=== PATIENT | female | born 1980 | race Two or more races ===

== ENCOUNTER 2024-03-08 06:00 | Inpatient (IN) | payer OTHER ==
[~2024-03-08] VITALS: Ht 157.5 cm; Wt 77.1 kg
[~2024-03-08 06:00] MED LIST: B COMPLEX1 EAC1; FOLIC ACID0.8 M1; LABETALOL 11 MG/1 ML; MAXFE CAPLET1 EAC1; OSTERA TABLET1 EACH; TIROSINT50 MCG
[2024-03-08] MEDS ORDERED: BUPIVACAINE HCL/MPF 0.5% 30ML VIAL ONE (07:36)
[2024-03-08] MEDS ORDERED: EPINEPHRINE HCL/PF 1 MG/ML AMPUL ONE (07:36)
[2024-03-08] MEDS ORDERED: CEFAZOLIN SODIUM 1,000 MG VIAL ONE (07:37)
[2024-03-08] MEDS ORDERED: LIDOCAINE HCL 1% 20ML VIAL IJ ONE ×2 (07:37→11:00)
[2024-03-08] MEDS ORDERED: POVIDONE-IODINE 118 ML BOTT TOP ONE (08:53)
[2024-03-08] MEDS ORDERED: BUPIVACAINE HCL 30 ML VIAL IJ ONE (11:00)
[2024-03-08] MEDS ORDERED: EPINEPHRINE HCL/PF 1 MG/ML AMPUL IJ ONE (11:00)
[2024-03-08] MEDS ORDERED: CEFAZOLIN SODIUM 1,000 MG VIAL IV ONE (11:00)
[2024-03-08] MEDS ORDERED: ENOXAPARIN SODIUM 40 MG/0.4 ML SYRINGE SUBCUTANEO ONE (12:30)
[2024-03-08] MEDS ORDERED: SUGAMMADEX SODIUM 200 MG/2 ML VIAL IV ONE (16:34)
[2024-03-08] MEDS ORDERED: OxyCODONE HCL/APAP UD (PERCOCET) PO PRN (17:45)
[2024-03-08] MEDS ORDERED: ONDANSETRON HCL 2 MG/ML VIAL IV PRN (17:45)
[2024-03-08] MEDS ORDERED: CLINDAMYCIN PHOSPHATE 150 MG/ML (900mg) IV SCH (18:00)
[2024-03-08] MEDS ORDERED: FAMOTIDINE/PF 20 MG/2 ML VIAL ONE (19:58)
[2024-03-08] MEDS ORDERED: FAMOTIDINE/PF 20 MG/2 ML VIAL IV SCH (21:00)
[2024-03-08] MEDS ORDERED: MORPHINE SULFATE 4 MG/ML CARTRIDGE IV PRN (23:15)
[2024-03-09 08:54] LABS: HEMOGLOBIN 11.6 g/dL (12.0-15.00); MEAN CELL VOLUME 90.5 fL (80.00-100.00); MEAN CORPUSCULAR HEMOGLOBIN 30.8 pg (27.00-32.0); PLATELET COUNT 194 K/uL (150-450); RED BLOOD COUNT 3.76 M/uL (4.00-6.00); RED CELL DISTRIBUTION WIDTH 17.2 % (11.5-14.5)
[2024-03-12] MEDS ORDERED: SUGAMMADEX SODIUM 200 MG/2 ML VIAL IV ONE (22:45)
[2024-03-12] MEDS ORDERED: POVIDONE-IODINE 118 ML BOTT TOP ONE (22:45)
[2024-03-12] MEDS ORDERED: ENOXAPARIN SODIUM 40 MG/0.4 ML SYRINGE SUBCUTANEO ONE (22:45)
== END 2024-03-09 13:38 | disposition home or self-care (01) | DRG 572 ==
LOC: CIR.AMB 06:00 → SURH 17:22
PROVIDERS: ADMIT Specialist; ATTEND Specialist
PROC: 0JB80ZZ Excision of Abdomen Subcutaneous Tissue and Fascia, Open Approach (ICD-10-PCS; 2024-03-08)
PROC: 0J0D3ZZ Alteration of Right Upper Arm Subcutaneous Tissue and Fascia, Percutaneous Approach (ICD-10-PCS; 2024-03-08)
PROC: 0J0F3ZZ Alteration of Left Upper Arm Subcutaneous Tissue and Fascia, Percutaneous Approach (ICD-10-PCS; 2024-03-08)
PROC: 0HRV0JZ Replacement of Bilateral Breast with Synthetic Substitute, Open Approach (ICD-10-PCS; 2024-03-08)
PROC: 0HBV0ZZ Excision of Bilateral Breast, Open Approach (ICD-10-PCS; principal; 2024-03-08 07:00)
DX: N62 Hypertrophy of breast (principal); E65 Localized adiposity; N64.81 Ptosis of breast; L98.7 Excessive and redundant skin and subcutaneous tissue; Z20.822 Contact with and (suspected) exposure to COVID-19